=== PATIENT | female | born 1945 | race Caucasian/White ===

== ENCOUNTER → 2016-04-23 | Outpatient (CLI) | payer MEDICARE, OTHER ==
--- NOTE | 2016-04-23 11:39 | REPMRS ---
Patient History The patient states she had a clinical breast exam in 2015. Patient is postmenopausal. Family history of prostate cancer in father at age 50 or over, breast cancer in sister at age 50 or over, breast cancer in maternal cousin at age 50 or over, and colorectal cancer in 2 maternal uncles at age 50 or over. Benign excisional biopsy of the right breast, 1967. Took hormonal contraceptives for 20 years. Took unspecified hormones for 15 years. Patient states she has had a 15lbs weight loss Digital Mammo Screening Bilat: April 23, 2016 - Exam #: [id number] Bilateral CC and MLO view(s) were taken. Technologist: Casandra Saldana, Technologist Prior study comparison: April 17, 2015, bilateral digital mammo screening bilat performed at [facility]. October 28, 2013, bilateral bilat screen digital mammo, performed at [facility] ([facility]). October 22, 2012, bilateral bilat screen digital mammo, performed at [facility] ([facility]). FINDINGS: There are scattered fibroglandular densities. There has been no change in the appearance of the mammogram from the prior studies. There is a mild amount of scattered fibroglandular density which is fairly symmetric. There is no interval development of dominant mass, architectural distortion, or clustered microcalcification suggestive of malignancy. ASSESSMENT: BI-RADS/ACR category 1 mammogram. Negative. Recommendation Routine screening mammogram in 1 year (for women over age 40). This mammogram was interpreted with the aid of an FDA-approved computer-aided dectection system. Electronically Signed By: Misael Lee MD 04/23/16 [id number]
== END ==
LOC: M RAD 10:32
PROVIDERS: ATTEND Nurse Practitioner
DX: Z12.31 Encounter for screening mammogram for malignant neoplasm of breast (principal); Z78.0 Asymptomatic menopausal state; Z80.0 Family history of malignant neoplasm of digestive organs; Z80.3 Family history of malignant neoplasm of breast; Z92.0 Personal history of contraception

== ENCOUNTER 2016-12-03 11:43 | Day surgery (SDC) | payer MEDICARE, OTHER ==
[~2016-12-03] VITALS: Ht 157.5 cm; Wt 118.4 kg
[~2016-12-03 11:43] MED LIST: ACETAMINOPHEN 325 MG TAB PO PRN; BSS with VANC/TOB/EPI for EYE CASES IR ONE; CIPR-249 PO; CRES10TA32 PO; CYCLOPENTOLATE 2% OPHTH SOLN 2ML BTL OS ONE; DIOV160T6 PO; EPIP0.3I2 SC; EYE-TAB2 PO; FOLI1TAB4 PO; HEALON DUET (HEALON 10MG/ML 0.55ML & HEALON ENDOCOAT 30MG/ML 0.85ML) As Ordered ONE; HYDR12.55 PO; IMIT100T PO; LEVA12INH INH; LIDO5DIS41 TD; LIDOCAINE 1% SDV 5 ML VIAL As Ordered ONE; LIDOCAINE 3.5 % 1ML OPHTH TOPICAL GEL OU ONE; METH2.5TA PO; MOXIFLOXACIN IN BSS 0.25MG/0.25ML INTRACAMERAL INJ (OR EYE ONLY)(J2280) As Ordered ONE; OFLOXACIN 0.3 % (OCUFLOX) OPTH SOL 5ML OS ONE; PHENYLEPHRINE 2.5% OPHTH SOL 2ML OS ONE; POVIDONE-IODINE 5% OPHTH PREP SOL 30ML As Ordered ONE; PROPARACAINE 0.5% OPHTH SOL 15ML OS PRN; REFR0.1D OU; REST0.05 OU; SKEL800T97 PO; TOBR3OPD OS; TRAM50TA2 PO; TRIAMCINOLONE PRES FR 40 MG/ML 1ML(TRIESENCE)(OR EYE ONLY)(J3300 PER 1MG) As Ordered ONE; TROPICAMIDE 1% OPHTH SOLN 2ML OS ONE
[2016-12-03] MEDS ORDERED: D5W/0.2% SODIUM CHLORIDE 250 ML IV ONE (12:00)
[2016-12-03] MEDS ORDERED: fentaNYL 100 MCG/2 ML INJECTION (J3010) As Ordered ONE (13:58)
[2016-12-03] MEDS ORDERED: MIDAZOLAM INJ 2 MG/2 ML VIAL (J2250) As Ordered ONE (13:58)
[2016-12-03] MEDS ORDERED: ONDANSETRON 4MG/2ML VIAL (J2405) IV PRN (14:45)
[2016-12-03] MEDS ORDERED: LR 1,000 ML IV SCH (14:45)
[2016-12-03] MEDS ORDERED: TRIMETHOBENZAMIDE 300 MG CAP PO PRN (14:45)
[2016-12-03 15:25] VITALS: BP 123/60
== END 2016-12-03 15:40 | disposition home or self-care (01) ==
LOC: M SDC 11:43
PROVIDERS: ATTEND Ophthalmology
DX: H26.9 Unspecified cataract (principal); E11.9 Type 2 diabetes mellitus without complications; I10 Essential (primary) hypertension; J45.909 Unspecified asthma, uncomplicated; M06.9 Rheumatoid arthritis, unspecified; G47.30 Sleep apnea, unspecified; R01.1 Cardiac murmur, unspecified; E78.5 Hyperlipidemia, unspecified; I34.9 Nonrheumatic mitral valve disorder, unspecified; M79.7 Fibromyalgia; G43.909 Migraine, unspecified, not intractable, without status migrainosus; M54.5 Low back pain; F33.1 Major depressive disorder, recurrent, moderate; M60.9 Myositis, unspecified; Z79.899 Other long term (current) drug therapy; Z88.8 Allergy status to other drugs, medicaments and biological substances; Z88.5 Allergy status to narcotic agent; Z91.040 Latex allergy status; Z88.2 Allergy status to sulfonamides; Z87.891 Personal history of nicotine dependence
CPT/HCPCS: 66984; J2250; J2280; J3010; J3300; V2632

== ENCOUNTER → 2017-06-23 | Outpatient (CLI) | payer MEDICARE, OTHER | LOC: M RAD 12:48 | DX: Z12.31 Encounter for screening mammogram for malignant neoplasm of breast (principal); Z78.0 Asymptomatic menopausal state; Z80.3 Family history of malignant neoplasm of breast; Z98.890 Other specified postprocedural states; Z92.0 Personal history of contraception; Z92.23 Personal history of estrogen therapy | CPT/HCPCS: 77067 ==

== ENCOUNTER → 2018-11-05 | Outpatient (CLI) | payer MEDICARE, OTHER ==
[~2018-11-05] MED LIST changes: -ACETAMINOPHEN 325 MG TAB PO PRN; +AK-T0.3S OS; -BSS with VANC/TOB/EPI for EYE CASES IR ONE; +CRES10TA PO; -CRES10TA32 PO; -CYCLOPENTOLATE 2% OPHTH SOLN 2ML BTL OS ONE; +FOLI1TAB11 PO; -FOLI1TAB4 PO; -HEALON DUET (HEALON 10MG/ML 0.55ML & HEALON ENDOCOAT 30MG/ML 0.85ML) As Ordered ONE; -LIDOCAINE 1% SDV 5 ML VIAL As Ordered ONE; -LIDOCAINE 3.5 % 1ML OPHTH TOPICAL GEL OU ONE; +METH2.5T48 PO; -METH2.5TA PO; -MOXIFLOXACIN IN BSS 0.25MG/0.25ML INTRACAMERAL INJ (OR EYE ONLY)(J2280) As Ordered ONE; -OFLOXACIN 0.3 % (OCUFLOX) OPTH SOL 5ML OS ONE; -PHENYLEPHRINE 2.5% OPHTH SOL 2ML OS ONE; -POVIDONE-IODINE 5% OPHTH PREP SOL 30ML As Ordered ONE; -PROPARACAINE 0.5% OPHTH SOL 15ML OS PRN; -TOBR3OPD OS; -TRIAMCINOLONE PRES FR 40 MG/ML 1ML(TRIESENCE)(OR EYE ONLY)(J3300 PER 1MG) As Ordered ONE; -TROPICAMIDE 1% OPHTH SOLN 2ML OS ONE
--- NOTE | 2018-11-05 14:39 | REPMRS ---
Patient History The patient states she had a clinical breast exam in 07/2018. Patient is postmenopausal. Family history of colorectal cancer at age 50 or over in maternal uncle, colorectal cancer at age 50 or over in maternal uncle, breast cancer at age 50 or over in maternal cousin, breast cancer at age 67 in maternal half sister, prostate cancer at age 50 or over in father. Benign excisional biopsy of the right breast, 1967. Took hormonal contraceptives for 20 years. Took unspecified hormones for 15 years. 3D TOMOSYNTHESIS WAS PERFORMED. [facility] lifetime risk for breast cancer is 3.1%. Digital Woman Screen Mammo: November 05, 2018 - Exam #: [id number] Bilateral CC and MLO view(s) were taken. Technologist: Saritha Strauss, Technologist Prior study comparison: June 23, 2017, bilateral digital mammo screening bilat, performed at [facility]. April 23, 2016, bilateral digital mammo screening bilat, performed at [facility]. FINDINGS: The breast tissue is heterogeneously dense. This may lower the sensitivity of mammography. There has been no change in the appearance of the mammogram from the prior studies. There is a moderate amount of residual fibroglandular tissue which is fairly symmetric. There is no interval development of dominant mass, areas of architectural distortion, or clustered microcalcification typical of malignancy. Assessment: BI-RADS/ACR category 1 mammogram. Negative Mammogram. Recommendation Routine screening mammogram in 1 year (for women over age 40). This mammogram was interpreted with the aid of an FDA-approved computer-aided dectection system. Electronically Signed By: Mitchel Walker MD 11/05/18 [id number]
--- NOTE | 2018-11-10 12:58 | DEXA ---
AP SPINE L1 - L4 1.174 -0.2 1.5 LT FEMUR TOTAL 0.890 -0.9 0.6 LT NECK 0.762 -2.0 -0.2 RT FEMUR TOTAL 0.875 -1.1 0.5 RT NECK 0.701 -2.4 -0.7 TOTAL BODY TOTAL OTHER COMMENTS: Normal bone densitometry of the spine. There is low bone density of the hips. The density of the spine has increased 9.3% since the initial exam on 03/25/2001. The spine density has increased 3.2% since the most recent exam on 11/04/2013. The density of the left hip has decreased 12.1% since the initial exam on 03/25/2001. The density of the left hip has decreased 11.4% since the most recent exam on 11/04/2013. The density of the right hip has decreased 17.7% since the initial exam on 03/25/2001. The density of the right hip has decreased 13.3% since the most recent exam on 11/04/2013. FOLLOW-UP: Recommendation for the next bone density exam: 2 years. KANG
== END ==
LOC: M WHC 12:56
PROVIDERS: ATTEND Nurse Practitioner
DX: Z12.31 Encounter for screening mammogram for malignant neoplasm of breast (principal); M84.80 Other disorders of continuity of bone, unspecified site; Z78.0 Asymptomatic menopausal state; Z92.0 Personal history of contraception; Z92.23 Personal history of estrogen therapy

== ENCOUNTER → 2019-12-01 | Outpatient (CLI) | payer MEDICARE, OTHER ==
--- NOTE | 2019-12-04 12:16 | REPMRS ---
Patient History The patient states she had a clinical breast exam in 09/2019. Family history of colorectal cancer at age 50 or over in maternal uncle, colorectal cancer at age 50 or over in maternal uncle, breast cancer at age 50 or over in maternal cousin, breast cancer at age 67 in maternal half sister, prostate cancer at age 50 or over in father. Benign excisional biopsy of the right breast, 1967. Took hormonal contraceptives for 20 years. Took unspecified hormones for 15 years. Digital Woman Screen Mammo: December 01, 2019 - Exam #: [id number] Bilateral CC and MLO view(s) were taken. Technologist: Niesha Jasso, Technologist Prior study comparison: November 05, 2018, bilateral digital woman screen mammo performed at [facility] [place]. June 23, 2017, bilateral digital mammo screening bilat, performed at [facility]. April 23, 2016, bilateral digital mammo screening bilat, performed at [facility]. FINDINGS: The breast tissue is almost entirely fat. The Volpara volumetric breast density category is: A. There has been no change in the appearance of the mammogram from the prior studies. There is no interval development of dominant mass, architectural distortion, or grouped microcalcification typical of malignancy. 3-D tomosynthesis shows no additional findings. Assessment: BI-RADS/ACR category 1 mammogram. Negative Mammogram. Recommendation Routine screening mammogram of both breasts in 1 year (for women over age 40). This patient's Lifetime Breast Cancer RIsk is estimated at 2.9 %. This mammogram was interpreted with the aid of an FDA-approved computer-aided dectection system. Electronically Signed By: Misael Lee MD 12/04/19 [id number]
== END ==
LOC: M WHC 14:00
PROVIDERS: ATTEND Nurse Practitioner
DX: Z12.31 Encounter for screening mammogram for malignant neoplasm of breast (principal)

== ENCOUNTER → 2021-01-18 | Outpatient (CLI) | payer MEDICARE, OTHER ==
--- NOTE | 2021-01-18 16:24 | REPMRS ---
Patient History The patient states she had a clinical breast exam in August 2020. Family history of colorectal cancer at age 50 or over in maternal uncle, colorectal cancer at age 50 or over in maternal uncle, breast cancer at age 50 or over in maternal cousin, breast cancer at age 67 in maternal half sister, prostate cancer at age 50 or over in father. Benign excisional biopsy of the right breast, 1967. Took hormonal contraceptives for 20 years. Took unspecified hormones for 15 years. No breast complaints today Patient signed the MRS sheet 1st Moderna vaccine in June 13 vaccine in July-both in the left arm-does not remember the dates Patient has had a 15lb unintentional weight loss since her last exam due to stress Priors on PACS Patient Identification Verified Digital Woman Screen Mammo: January 18, 2021 - Exam #: [id number] Bilateral CC and MLO view(s) were taken. Technologist: Paige Lima Technologist Prior study comparison: December 01, 2019, bilateral digital woman screen mammo performed at [facility] [place]. November 05, 2018, bilateral digital woman screen mammo performed at [facility] [place]. June 23, 2017, bilateral digital mammo screening bilat, performed at [facility]. FINDINGS: The breast tissue is almost entirely fat. The Volpara volumetric breast density category is: A. There has been no change in the appearance of the mammogram from the prior studies. There is no interval development of dominant mass, architectural distortion, or grouped microcalcification typical of malignancy. 3-D tomosynthesis shows no additional findings. Assessment: BI-RADS/ACR category 1 mammogram. Negative Mammogram. Recommendation Routine screening mammogram of both breasts in 1 year (for women over age 40). This patient's [facility] Lifetime Breast Cancer RIsk is estimated at 2.5 %. This mammogram was interpreted with the aid of an FDA-approved computer-aided dectection system. Electronically Signed By: Misael Lee MD 01/18/21 [id number]
== END ==
LOC: M WHC 15:29
PROVIDERS: ATTEND Nurse Practitioner
DX: Z12.31 Encounter for screening mammogram for malignant neoplasm of breast (principal)